=== PATIENT | female | born 1950 | race Caucasian/White ===

== ENCOUNTER 2018-02-24 15:59 | Emergency (ER) | payer OTHER ==
[2018-02-24 17:33] LABS: Absolute Lymphocytes (CBC) 1.3 K/uL (0.7-4.9); Absolute Monocytes 0.7 K/uL (0.1-1.3); Absolute Neutrophil 4.8 K/uL (1.8-8.0); Basophils % 0.7 % (0-1.3); Eosinophils % 3.9 % (0-4.4); Hematocrit 43.9 % (36.0-45.0); Lymphocytes % 17.8 % (15.3-44.8); MCH 31.6 pg (27.0-35.0); MCV 93.7 fL (80-100); MPV 8.3 fL (7.6-11.3); Monocytes % 9.8 % (3.3-12.3); RBC Red Blood Cell Count 4.69 M/uL (3.86-4.86)
[2018-02-24 17:37] LABS: Protime INR 0.97
[2018-02-24 17:41] LABS: Urine Blood NEGATIVE (NEG); Urine Glucose NEGATIVE (NEG); Urine Protein NEGATIVE (NEG); Urine Specific Gravity 1.015 (1.005-1.030); Urine pH 6.5 (5.0-7.0)
[2018-02-24] MEDS ORDERED: NA CHLORIDE 0.9% 1,000 ML ONE (17:49)
[2018-02-24 17:55] LABS: ALT/SGPT 16 U/L (12-78); AST/SGOT 22 U/L (15-37); Albumin 4.1 g/dL (3.4-5.0); Alkaline Phosphatase 146 U/L (45-117); BUN Blood Urea Nitrogen 14 mg/dL (7-18); Bicarbonate 30 mmol/L (21-32); Bilirubin Direct 0.2 mg/dL (0-0.2); Bilirubin Total 0.5 mg/dL (0.2-1.0); CKMB Creatine Kinase MB < 1.0 ng/mL (0.3-3.6); Creatine Phosphokinase 49 U/L (26-192); Glucose Level 82 mg/dL (74-106); Lipase 245 U/L (73-393); Magnesium 2.4 mg/dL (1.8-2.4); NT PRO-BNP 294 pg/mL (<125); Potassium 3.5 mmol/L (3.5-5.1); Protein, Total 8.8 g/dL (6.4-8.2); Sodium Level 141 mmol/L (136-145)
--- NOTE | 2018-02-24 18:41 | EDPHYS ---
Physician Documentation [facility] Name: Lane Alonso Age: 67 yrs Sex: Female : 1950 Arrival Date: 02/24/2018 Time: 16:00 Bed 28 Private MD: Wilton Tapia ED Physician Domenic Steiner HPI: 02/24 18:30 This 67 yrs old Female presents to ER via Ambulatory with complaints of owen Productive Cough - BLOOD. 18:30 The patient or guardian reports cough, difficulty breathing. Onset: The owen symptoms/episode began/occurred this morning. Severity of symptoms: At their worst the symptoms were moderate. Modifying factors: The symptoms are alleviated by nothing, the symptoms are aggravated by nothing. Associated signs and symptoms: The patient has no apparent associated signs or symptoms. The patient has experienced similar episodes in the past, a few times. Historical: - Home Meds: 16:07 keytruda [Active]; amlodipine oral [Active]; Prilosec Oral [Active]; sv - PMHx: 16:07 Lung Cancer; sv - PSHx: 16:07 Hysterectomy; sv - Immunization history:: Adult Immunizations up to date. - Social history:: Smoking status: Patient/guardian denies using tobacco. - Ebola Screening: : No symptoms or risks identified at this time. - Family history:: not pertinent. ROS: 18:30 Constitutional: Negative for fever, chills, and weight loss, Eyes: Negative for injury, owen pain, redness, and discharge, ENT: Negative for injury, pain, and discharge, Neck: Negative for injury, pain, and swelling, Cardiovascular: Negative for chest pain, palpitations, and edema, Abdomen/GI: Negative for abdominal pain, nausea, vomiting, diarrhea, and constipation, Back: Negative for injury and pain, : Negative for injury, bleeding, discharge, and swelling, MS/Extremity: Negative for injury and deformity, Skin: Negative for injury, rash, and discoloration, Neuro: Negative for headache, weakness, numbness, tingling, and seizure, Psych: Negative for depression, anxiety, suicide ideation, homicidal ideation, and hallucinations, Allergy/Immunology: Negative for hives, rash, and allergies, Endocrine: Negative for neck swelling, polydipsia, polyuria, polyphagia, and marked weight changes. 18:30 Respiratory: Positive for cough, hemoptysis. Exam: 18:30 Constitutional: This is a well developed, well nourished patient who is awake, alert, owen and in no acute distress. Head/Face: Normocephalic, atraumatic. Eyes: Pupils equal round and reactive to light, extra-ocular motions intact. Lids and lashes normal. Conjunctiva and sclera are non-icteric and not injected. Cornea within normal limits. Periorbital areas with no swelling, redness, or edema. ENT: Nares patent. No nasal discharge, no septal abnormalities noted. Tympanic membranes are normal and external auditory canals are clear. Oropharynx with no redness, swelling, or masses, exudates, or evidence of obstruction, uvula midline. Mucous membranes moist. Neck: Trachea midline, no thyromegaly or masses palpated, and no cervical lymphadenopathy. Supple, full range of motion without nuchal rigidity, or vertebral point tenderness. No Meningismus. Chest/axilla: Normal chest wall appearance and motion. Nontender with no deformity. No lesions are appreciated. Cardiovascular: Regular rate and rhythm with a normal S1 and S2. No gallops, murmurs, or rubs. Normal PMI, no JVD. No pulse deficits. Abdomen/GI: Soft, non-tender, with normal bowel sounds. No distension or tympany. No guarding or rebound. No evidence of tenderness throughout. Back: No spinal tenderness. No costovertebral tenderness. Full range of motion. Skin: Warm, dry with normal turgor. Normal color with no rashes, no lesions, and no evidence of cellulitis. MS/ Extremity: Pulses equal, no cyanosis. Neurovascular intact. Full, normal range of motion. Neuro: Awake and alert, GCS 15, oriented to person, place, time, and situation. Cranial nerves II-XII grossly intact. Motor strength 5/5 in all extremities. Sensory grossly intact. Cerebellar exam normal. Normal gait. Psych: Awake, alert, with orientation to person, place and time. Behavior, mood, and affect are within normal limits. 18:30 Respiratory: the patient does not display signs of respiratory distress, Respirations: normal, Breath sounds: rhonchi. Vital Signs: 16:07 BP 149 / 96; Pulse 102; Resp 24; Pulse Ox 93% on R/A; Weight 59.42 kg; Height 5 ft. 3 sv in. (160.02 cm); Pain 0/10; 17:36 BP 154 / 80; Pulse 94; Resp 22; Pulse Ox 95% on R/A; mb3 18:20 BP 143 / 68; Pulse 80; Resp 20; Pulse Ox 95% on R/A; mb3 19:00 BP 150 / 92; Pulse 92; Resp 22; Pulse Ox 89% on 1 lpm NC; mb3 19:00 BP 135 / 83; Pulse 95; Resp 22; Pulse Ox 96% on 1 lpm NC; mb3 20:00 BP 127 / 71; Pulse 88; Resp 18; Pulse Ox 96% on 1 lpm NC; mb3 21:00 BP 129 / 72; Pulse 102; Resp 22; Pulse Ox 96% on 2 lpm NC; mb3 22:00 BP 103 / 45; Pulse 87; Resp 20; Pulse Ox 99% on R/A; mb3 16:07 Body Mass Index 23.21 (59.42 kg, 160.02 cm) sv MDM: 16:28 Patient medically screened. [facility] 18:30 Data reviewed: vital signs, nurses notes, lab test result(s), EKG, radiologic studies, [facility] CT scan, plain films. 02/24 16:46 Order name: Basic Metabolic Panel [facility] 02/24 16:46 Order name: CBC with Diff [facility] 02/24 16:46 Order name: Ckmb; Complete Time: 18:24 [facility] 02/24 16:46 Order name: CPK; Complete Time: 18:24 [facility] 02/24 16:46 Order name: LFT's; Complete Time: 18:24 [facility] 02/24 16:46 Order name: Magnesium; Complete Time: 18:24 [facility] 02/24 16:46 Order name: NT PRO-BNP; Complete Time: 18:24 [facility] 02/24 16:46 Order name: PT-INR; Complete Time: 18:24 [facility] 02/24 16:46 Order name: Ptt, Activated; Complete Time: 18:24 [facility] 02/24 16:46 Order name: Troponin (emerg Dept Use Only); Complete Time: 18:24 [facility] 02/24 16:46 Order name: Blood Culture Adult (2) [facility] 02/24 16:46 Order name: Lipase; Complete Time: 18:24 [facility] 02/24 16:47 Order name: Basic Metabolic Panel; Complete Time: 18:24 [facility] 02/24 16:47 Order name: CBC with Automated Diff; Complete Time: 18:24 [facility] 02/24 16:46 Order name: XRAY Chest (1 view); Complete Time: 19:09 [facility] 02/24 16:46 Order name: EKG; Complete Time: 16:47 [facility] 02/24 16:46 Order name: Cardiac monitoring; Complete Time: 17:33 [facility] 02/24 16:46 Order name: EKG - Nurse/Tech; Complete Time: 17:33 [facility] 02/24 16:46 Order name: IV Saline Lock; Complete Time: 17:33 [facility] 02/24 16:46 Order name: Labs collected and sent; Complete Time: 17:33 [facility] 02/24 16:46 Order name: O2 Per Protocol; Complete Time: 17:33 [facility] 02/24 16:46 Order name: O2 Sat Monitoring; Complete Time: 17:33 [facility] 02/24 16:46 Order name: Urine Dipstick-Ancillary (obtain specimen); Complete Time: 17:33 [facility] 02/24 16:46 Order name: CT Chest For PE Angio; Complete Time: 19:09 [facility] 02/24 17:39 Order name: Urine Dipstick--Ancillary (enter results); Complete Time: 18:24 ss Administered Medications: 17:55 Drug: NS 0.9% 1000 ml Route: IV; Rate: 125 ml/hr; Site: left antecubital; mb3 22:37 Follow up: Response: No adverse reaction; IV Status: IV converted to saline lock; IV mb3 Intake: 250ml 19:04 Drug: levofloxacin 500 mg Volume: 100 ml; Route: IVPB; Infused Over: 60 mins; Site: 3 left antecubital; 22:37 Follow up: Response: No adverse reaction; IV Status: Completed infusion; IV Intake: mb3 100ml Disposition: 02/24/18 18:41 Transfer ordered to [facility]. Diagnosis are Cough, Hemoptysis - hx lung cancer, Dyspnea, Pleural effusion in conditions classified elsewhere - bilateral, left loculated. - Reason for transfer: Higher level of care. - Accepting physician is to [facility]. - Condition is Fair. - Problem is new. - Symptoms have improved. Signatures: Dispatcher [facility] Kirstin Gonzales RN RN sv Anderson, Corey, MD MD [facility] Vance, Jerome, RN RN mb3 Corrections: (The following items were deleted from the chart) 18:42 18:41 02/24/2018 18:41 Transfer ordered to [facility]. Diagnosis is owen Cough; Hemoptysis - hx lung cancer. Reason for transfer: Higher level of care. Accepting physician is to [facility]. Condition is Fair. Problem is new. Symptoms have improved. [facility] 19:10 18:42 02/24/2018 18:41 Transfer ordered to [facility]. Diagnosis is owen Cough; Hemoptysis - hx lung cancer; Dyspnea. Reason for transfer: Higher level of care. Accepting physician is to [facility]. Condition is Fair. Problem is new. Symptoms have improved. [facility] 22:36 19:10 02/24/2018 18:41 Transfer ordered to [facility]. Diagnosis is mb3 Cough; Hemoptysis - hx lung cancer; Dyspnea; Pleural effusion in conditions classified elsewhere - bilateral, left loculated. Reason for transfer: Higher level of care. Accepting physician is to [facility]. Condition is Fair. Problem is new. Symptoms have improved. [facility]
--- NOTE | 2018-02-24 18:41 | ER ---
Nurse's Notes [facility] Name: Lane Alonso Age: 67 yrs Sex: Female : 1950 Arrival Date: 02/24/2018 Time: 16:00 Bed 28 Private MD: Wilton Tapia Diagnosis: Cough;Hemoptysis-hx lung cancer;Dyspnea;Pleural effusion in conditions classified elsewhere-bilateral, left loculated Presentation: 02/24 16:05 Presenting complaint: Patient states: SOB and coughing up blood and blood clots that sv started last night. Pt has hx of St 4 lung CA. Transition of care: patient was not received from another setting of care. Onset of symptoms was February 23, 2018. Care prior to arrival: None. 16:05 Method Of Arrival: Ambulatory sv 16:05 Acuity: SAIGE 3 sv 17:34 Risk Assessment: Do you want to hurt yourself or someone else? Patient reports no mb3 desire to harm self or others. Initial Sepsis Screen: Does the patient meet any 2 criteria? No. Patient's initial sepsis screen is negative. Does the patient have a suspected source of infection? No. Patient's initial sepsis screen is negative. Triage Assessment: 22:36 General: Appears in no apparent distress. comfortable. General: Behavior is calm, mb3 cooperative, appropriate for age. Respiratory: Onset: The symptoms/episode began/occurred. Respiratory: Reports cough that is productive, the patient has mild shortness of breath. Historical: - Home Meds: 16:07 keytruda [Active]; amlodipine oral [Active]; Prilosec Oral [Active]; sv - PMHx: 16:07 Lung Cancer; sv - PSHx: 16:07 Hysterectomy; sv - Immunization history:: Adult Immunizations up to date. - Social history:: Smoking status: Patient/guardian denies using tobacco. - Ebola Screening: : No symptoms or risks identified at this time. - Family history:: not pertinent. Screenin:34 Abuse screen: Denies threats or abuse. Nutritional screening: No deficits noted. mb3 Tuberculosis screening: No symptoms or risk factors identified. Fall Risk None identified. Assessment: 16:36 General: Appears in no apparent distress. comfortable, Behavior is calm, cooperative, mb3 appropriate for age. Pain: Denies pain. Neuro: No deficits noted. Level of Consciousness is awake, alert, obeys commands. Cardiovascular: Heart tones present Capillary refill < 3 seconds Patient's skin is warm and dry. Pulses are all present. Rhythm is regular. Respiratory: Airway is patent Respiratory effort is even, unlabored, Respiratory pattern is regular, symmetrical, Breath sounds are clear in right upper lobe, right middle lobe, right posterior upper lobe and right posterior middle lobe Breath sounds are coarse in left upper lobe, left lower lobe, left posterior upper lobe and left posterior lower lobe. GI: No deficits noted. No signs and/or symptoms were reported involving the gastrointestinal system. Abdomen is flat, Bowel sounds present X 4 quads. Abd is soft and non tender. : No deficits noted. No signs and/or symptoms were reported regarding the genitourinary system. EENT: No deficits noted. No signs and/or symptoms were reported regarding the EENT system. Derm: No deficits noted. No signs and/or symptoms reported regarding the dermatologic system. 17:37 Reassessment: Patient and/or family updated on plan of care and expected duration. Pain mb3 level reassessed. Patient is alert, oriented x 3, equal unlabored respirations, skin warm/dry/pink. 18:21 Reassessment: No changes from previously documented assessment. Patient and/or family mb3 updated on plan of care and expected duration. Pain level reassessed. Patient is alert, oriented x 3, equal unlabored respirations, skin warm/dry/pink. 19:53 Reassessment: No changes from previously documented assessment. Patient and/or family mb3 updated on plan of care and expected duration. Pain level reassessed. Patient is alert, oriented x 3, equal unlabored respirations, skin warm/dry/pink. Report called to Tiffanie Garcia RN, SBAR used, all questions answered. Vital Signs: 16:07 BP 149 / 96; Pulse 102; Resp 24; Pulse Ox 93% on R/A; Weight 59.42 kg; Height 5 ft. 3 sv in. (160.02 cm); Pain 0/10; 17:36 BP 154 / 80; Pulse 94; Resp 22; Pulse Ox 95% on R/A; mb3 18:20 BP 143 / 68; Pulse 80; Resp 20; Pulse Ox 95% on R/A; mb3 19:00 BP 150 / 92; Pulse 92; Resp 22; Pulse Ox 89% on 1 lpm NC; mb3 19:00 BP 135 / 83; Pulse 95; Resp 22; Pulse Ox 96% on 1 lpm NC; mb3 20:00 BP 127 / 71; Pulse 88; Resp 18; Pulse Ox 96% on 1 lpm NC; mb3 21:00 BP 129 / 72; Pulse 102; Resp 22; Pulse Ox 96% on 2 lpm NC; mb3 22:00 BP 103 / 45; Pulse 87; Resp 20; Pulse Ox 99% on R/A; mb3 16:07 Body Mass Index 23.21 (59.42 kg, 160.02 cm) sv ED Course: 16:00 Patient arrived in ED. sb2 16:01 Wilton Tapia MD is Private Physician. sb2 16:06 Triage completed. sv 16:12 Jerome Vance, RN is Primary Nurse. mb3 16:14 Arm band placed on right wrist. Patient placed in an exam room, on a stretcher, on sv oxygen. 16:28 Domenic Steiner MD is Attending Physician. owen 17:15 Inserted saline lock: 20 gauge in left antecubital area, using aseptic technique. Blood mb3 collected. 17:33 XRAY Chest (1 view) Sent. mb3 17:33 Basic Metabolic Panel Sent. mb3 17:33 CBC with Diff Sent. mb3 17:35 Patient has correct armband on for positive identification. Placed in gown. Bed in low mb3 position. Call light in reach. Side rails up X 1. cafeteria monitor on. Pulse ox on. NIBP on. 17:45 X-ray completed. Portable x-ray completed in exam room. Patient tolerated procedure tm4 well. 17:46 XRAY Chest (1 view) In Process Unspecified. EDMS 18:40 CT Chest For PE Angio In Process Unspecified. EDMS 18:40 CT completed. Patient moved to CT via stretcher. Patient moved back from CT. kw1 22:35 No provider procedures requiring assistance completed. Patient transferred, IV remains mb3 in place. Administered Medications: 17:55 Drug: NS 0.9% 1000 ml Route: IV; Rate: 125 ml/hr; Site: left antecubital; mb3 22:37 Follow up: Response: No adverse reaction; IV Status: IV converted to saline lock; IV mb3 Intake: 250ml 19:04 Drug: levofloxacin 500 mg Volume: 100 ml; Route: IVPB; Infused Over: 60 mins; Site: 3 left antecubital; 22:37 Follow up: Response: No adverse reaction; IV Status: Completed infusion; IV Intake: mb3 100ml Intake: 22:37 IV: 100ml; Total: 100ml. mb3 22:37 IV: 250ml; Total: 350ml. mb3 Outcome: 18:41 ER care complete, transfer ordered by MD. weaver 22:35 Transferred to [facility], Transfer form completed. mb3 22:35 Condition: stable 22:35 Instructed on the need for transfer. 22:36 Patient left the ED. mb3 Signatures: Dispatcher [employer] Kirstin Gonzales RN RN sv Anderson, Corey, MD MD cha Marroquin, Tracy tm4 Elle Abreu kw1 Diamond Herrera sb2 Jerome Vance RN RN mb3 Corrections: (The following items were deleted from the chart) 16:14 16:05 Presenting complaint: Patient states: SOB and coughing up blood that started last sv night. Pt has hx of St 4 lung CA. sv
--- NOTE | 2018-02-24 18:43 | RAD REPORT ---
EXAM DESCRIPTION: RAD - Chest Single View - 02/24/2018 5:50 pm CLINICAL HISTORY: Hemoptysis, shortness of breath COMPARISON: November 2017 TECHNIQUE: AP portable chest image was obtained 1738 hours . FINDINGS: Baseline fibrotic lung pattern noted. Left base assessment is limited. Infiltrate and atel ectasis could be masked. Small left pleural effusion could also be present. Heart size is normal. No vascular engorgement. Patient is rotated which distorts the mediastinum. There is some left shift on the current and prior imaging. No pneumothorax. Left pleural effusion suspected. No acute bone findin g. No acute aortic findings suspected. IMPRESSION: Small left pleural effusion with infiltrate and/ or atelectasis at the left base. Chronic interstitial lung disease. No failure or volume overload.
--- NOTE | 2018-02-24 18:52 | RAD REPORT ---
EXAM DESCRIPTION: CT - Chest For Pe Angio - 02/24/2018 6:41 pm CLINICAL HISTORY: Hemoptysis, shortness of breath, history of lung cancer COMPARISON: CT study September 2017 TECHNIQUE: Dynamically enhanced 3 mm thick images of the chest were obtained during administration o f approximately 150mL Isovue 370 IV contrast. Coronal and oblique reconstruction images were generate d using maximum intensity projection protocol and reviewed. Exam utilizes a protocol to evaluate the pulmonary arterial tree. All CT scans are performed using dose optimization technique as appropriate and may include automated exposure control or mA/KV adjustment according to patient size. FINDINGS: No pulmonary emboli are identified. The aorta as imaged shows no acute or suspicious finding. No pericardial thickening or effusion. Chronic interstitial lung disease noted on the right. Scattered cystic cavities are present. There is a small right pleural effusion larger than seen in September. Posterior right lung field (image 32/78 and image 28/78) shows pulmonary nodules not substantially different from comparison. Spiculated or scar tissue in the right apex (image 16/78) not clearly different. Right apical scarring changes are present. Pleural thickening in the medial and anterior apex have no t changed. In the posterior left upper lung field (image 24/78) there is a 7 millimeter pulmonary nod ule larger than seen in February. Scarring and volume loss in the left hilum extending into the left apex not clearly different. Chronic pleural fluid changes posteriorly and chronic left lower lobe or left lower lung field parenchymal opacification noted. Small loculated pleural effusion at the left b ase. No new or enlarging mediastinal finding. No chest wall masses or abnormal axillary lymphadenopathy. IMPRESSION: No pulmonary emboli identified. A 7 millimeter irregular nodule left upper lung field has enlarged since September. Multiple nodules in the right lung field and areas of scarring around the left hilum, medial left bas e and left apex are not clearly different from February. Small right pleural effusion larger than seen in February. Loculated left base pleural effusion has n ot changed.
[2018-02-24] MEDS ORDERED: Levofloxacin500mg IV 500 MG/100 ML BAG IV ONE (18:58)
--- NOTE | 2018-02-25 09:30 | EKG ---
Test Date: 2018-02-24 Test Time: 17:29:38 Cell Tester: MEASUREMENT RESULTS: Intervals: Rate: 83 NM: 138 QRSD: 76 QT: 382 QTc: 448 [place]: P: 90 NM: 138 QRS: 86 T: 87 INTERPRETIVE STATEMENTS: Normal sinus rhythm Right atrial enlargement Cannot rule out Anterior infarct, age undetermined Abnormal ECG Compared to ECG 08/23/2016 08:01:51 Atrial abnormality now present Myocardial infarct finding now present Sinus tachycardia no longer present Electronically Signed On 02-25-18 09:27:59 CDT by Martin Pedersen
== END 2018-02-24 22:36 | disposition short-term general hospital (02) ==
LOC: ER 15:59
DX: J91.8 Pleural effusion in other conditions classified elsewhere (principal); R06.00 Dyspnea, unspecified; R05 Cough; Z85.118 Personal history of other malignant neoplasm of bronchus and lung
CPT/HCPCS: 36415; 71045; 71275; 80048; 80076; 81003; 82550; 82553; 83690; 83735; 83880; 84484; 85025; 85610; 85730; 87040 ×2; 93005; 96361; 96365; 96366; 99285; J7030; Q9967